=== PATIENT | female | born 1955 | race Caucasian/White ===

== ENCOUNTER 2022-12-24 10:45 | Emergency (ER) | payer OTHER, MEDICAID ==
[~2022-12-24] VITALS: Ht 165.1 cm; Wt 65.3 kg
[2022-12-24 10:46] VITALS: BP 185/110
--- NOTE | 2022-12-24 10:46 | NUR ---
Preston VALLE via gurney to bed 08.
[2022-12-24] MEDS ORDERED: CLONIDINE HYDROCHLORIDE 0.1 MG TAB PO ONE (10:55)
--- NOTE | 2022-12-24 10:55 | NUR ---
Yosvany VALLE from clinic office with c/o high blood pressure today. Per EMS, pt was visiting PCP's office today, s/p vital signs, BP of 210/145 noted, referred to ED via ambulance. Pt denies any symptoms of dizziness, chest pain, SOB or numbness. Pt reports taking Losartan for HTN. Pt changed into gown and placed on bedside monitor.
[2022-12-24] MEDS ORDERED: AMLO5TAB PO (11:14)
[2022-12-24 11:30] VITALS: BP 148/81
--- NOTE | 2022-12-24 11:30 | NUR ---
Patient discharged with v/s stable. Written and verbal after care instructions about hypertension given and explained. Patient alert, oriented and verbalized understanding of instructions. Ambulatory with steady gait. All questions addressed prior to discharge. ID band removed. Patient advised to follow up with PMD. Rx of Amlodipine Besylate given. Patient educated on indication of medication including possible reaction and side effects. Opportunity to ask questions provided and answered.
== END 2022-12-24 11:30 | disposition home or self-care (01) ==
LOC: MED 10:45
DX: I10 Essential (primary) hypertension (principal); Z79.899 Other long term (current) drug therapy
CPT/HCPCS: 93005; 99283